=== PATIENT | male | born 1985 | race Caucasian/White ===

== ENCOUNTER 2024-04-13 15:51 | Emergency (ER) | payer OTHER, SELFPAY ==
--- NOTE | ~2024-04-13 | XR_ITS ---
XR chest 2V Ordering provider: Rizwana Snyder APRN History: 38 years Male with . cough and fever . Comparison: December 23, 2008 FINDINGS: MEDIASTINUM: The cardiac silhouette is not enlarged. LUNGS: No effusions or pneumothorax. Opacification in the right lower lobe suggestive of pneumonia. Emphysematous changes. OTHER: No free air under the diaphragm. IMPRESSION: Right lower lobe pneumonia. Reviewed, dictated and finalized at location A. IMPRESSION: Right lower lobe pneumonia.
--- NOTE | 2024-04-13 16:02 | ED.URI ---
HPI - URI/Sore Throat General Chief Complaint: Upper Respiratory Infection Stated Complaint: Fever, Cough Time Seen by Provider: 04/13/24 16:18 Source: patient, RN notes reviewed and old records reviewed Mode of arrival: ambulatory Limitations: no limitations History of Present Illness HPI Narrative: 38-year-old male presents to the [facility] with complaints of cough and fever. On arrival patient is 89. Did take ibuprofen approximately 4 hours ago. Patient states fevers and symptoms started on , 3 days ago. Even though he has been taking ibuprofen his fevers are still reaching 103. Has not been able to eat. Feels dehydrated. reports that she is concern for dehydration and the fact that he has not eaten or drank much in the last 3 days. Onset (ago): day(s) (3) Treatments prior to arrival: acetaminophen and ibuprofen Related Data Home Medications Medication Instructions Recorded Confirmed No Home Medications 04/13/24 04/13/24 Allergies Allergy/AdvReac Type Severity Reaction Status Date / Time Penicillins Allergy Unknown Verified 04/13/24 16:08 Review of Systems Review of Systems: All systems reviewed & are unremarkable except as noted in HPI and below Constitutional: Constitutional: Reports as per HPI, Reports fatigue and Reports fever(s) ENT: Reports system reviewed and no additional complaints, except as documented Cardiovascular: Cardiovascular: Reports no additional cardiovascular complaints, Denies chest pain and Denies dyspnea Respiratory: Respiratory: Reports as per HPI, Denies chest congestion, Reports cough and Denies dyspnea Gastrointestinal: Gastrointestinal: Reports no additional gastrointestinal complaints, Denies abdominal pain, Denies nausea and Denies vomiting Musculoskeletal: Musculoskeletal: Reports no additional musculoskeletal complaints Integumentary/Breasts: Skin/Breast: Reports system reviewed and no additional complaints, except as docu PMFSH Family History Family History Mother Family history of malignant neoplasm Social History Social History Smoking status: Never smoker Comments At the time of my signature, I reviewed and agree with the nursing past medical, surgical, social, and family history. There is no relevant family history pertinent to the patient complaint. Exam Const: General: cooperative, no acute distress, well developed, alert, ill appearing, uncomfortable, well groomed and well nourished Nutritional Appearance: well nourished Orientation/consciousness: patient oriented x3 Limitations: no limitations HENMT: Head: normal to inspection Ears: hearing grossly normal bilaterally, external ears normal, TM's normal bilaterally, EAC's normal, mastoids normal and no periauricular adenopathy Face/Nose/Sinus: Normal external nose present, normal facial exam and face symmetric Face and sinus: normal facial exam and face symmetric Mouth: Yes Normal oral and palatal mucosa present, Yes lip normal and Yes tongue normal Throat: posterior oropharynx normal, tonsils normal, uvula midline and no uvular edema Eyes: General: appearance normal, both eyes and all related structures Alignment and Position: alignment normal Periorbital: periorbital findings normal Neck: Neck: normal visual inspection, full ROM, no lymphadenopathy and no meningeal signs Chest: Chest palpation & inspection: normal inspection of the chest Resp: Effort & Inspection: normal respiratory effort and able to speak in complete sentences Auscultation: crackles on the right in the mid lung walker and in the lower lung walker, no rales, rhonchi right lower and no wheezes Cardio: Rate: tachycardic Rhythm: regular rhythm Skin: General skin exam: normal color and no rashes or lesions noted Lesions: no lesions Rashes: no rashes Wounds: no wounds Neuro: General: patient orie
[2024-04-13 16:11] VITALS: BP 131/113; PULSE 113; RESP 16; TEMP 38.8; O2SAT 95
[2024-04-13 16:29] VITALS: TEMP 38.8
[2024-04-13 16:29] LABS: EDCOVIDSCREEN Negative (Negative); EDINFLUASCREEN Negative (Negative); EDINFLUBSCREEN Negative (Negative)
[2024-04-13] MEDS: ACETAMINOPHEN 500 MG TABLET 1000 MG PO (16:29)
--- NOTE | 2024-04-13 19:08 | PC.NURSE ---
1740 Patient had been sent to ED for further evaluation and treatment, he called in and requested antibiotic be sent to local pharmacy because he did not want to wait. Message relayed to DAMARI Tate. Lillian did call in prescription, patient notified by telephone. Patient was informed to monitor his condition and to return to ED for worsening symptoms or change in condition. Patient relates understanding.
== END 2024-04-13 16:35 | disposition short-term general hospital (02) ==
PROVIDERS: Emergency Provider Nurse Practitioner
DX: J18.1 Lobar pneumonia, unspecified organism (principal); Z20.822 Contact with and (suspected) exposure to COVID-19
CPT/HCPCS: 71046; 87426; 87804; 99213; A9270; G0463

== ENCOUNTER 2024-04-13 16:51 | Emergency (ER) | payer OTHER, SELFPAY ==
--- NOTE | 2024-04-13 17:05 | PC.NURSE ---
pt left due to long wait
[2024-04-13 17:07] VITALS: BP 124/90; PULSE 95; RESP 20; TEMP 36.7; O2SAT 94
== END 2024-04-13 17:51 | disposition left against medical advice (07) ==
DX: J18.9 Pneumonia, unspecified organism (principal)
CPT/HCPCS: 99199